=== PATIENT | male | born 1990 | race Caucasian/White ===

== ENCOUNTER → 2016-08-20 | Outpatient (CLI) | payer BC | LOC: OD 16:30 | PROVIDERS: ATTEND Nurse Practitioner Acute Care | DX: R30.0 Dysuria (principal) | CPT/HCPCS: 87086 ==

== ENCOUNTER → 2016-08-28 | Outpatient (CLI) | payer BC | LOC: RAD 19:46 | PROVIDERS: ATTEND Emergency Medicine | DX: S67.22XA Crushing injury of left hand, initial encounter (principal); X58.XXXA Exposure to other specified factors, initial encounter ==

== ENCOUNTER 2016-08-30 00:05 | Emergency (ER) | payer OTHER, BC ==
--- NOTE | 2016-08-30 02:03 | ER Document Report ---
HPI - HPI Patient complains to provider of: left hand pain Pain Level: 5 Context: Patient is 26-year-old male that comes emergency department for chief complaint of pain to his left hand. He states he struck his hand against a supply runway at work about 36 hours ago, he had an x-ray yesterday performed at urgent care which did not show any fractures. He states the area is still somewhat tender and swollen. He states he is taking 2 doses of ibuprofen, has not iced the area. He states he just wants it rechecked. He denies any new swelling, increased pain, or any other symptoms. He denies any daily medications or medical problems. - DERM Skin Color: Normal Past Medical History - General Information source: Patient - Social History Smoking Status: Never Smoker Drug Abuse: None Lives with: Alone Family History: Reviewed & Not Pertinent Patient has suicidal ideation: No Patient has homicidal ideation: No - Medical History Medical History: Negative Renal/ Medical History: Denies: Hx Peritoneal Dialysis Surgical Hx: Negative - Immunizations Immunizations up to date: Yes Hx Diphtheria, Pertussis, Tetanus Vaccination: Yes Vertical Provider Document - CONSTITUTIONAL General Appearance: WD/WN, No Apparent Distress - INFECTION CONTROL TRAVEL OUTSIDE OF THE [place] IN LAST 30 DAYS: No - HEENT HEENT: Atraumatic, Normocephalic - RESPIRATORY Respiratory: Breath Sounds Normal O2 Sat by Pulse Oximetry: 97 - CARDIOVASCULAR Cardiovascular: Regular Rate, Regular Rhythm - GI/ABDOMEN Gastrointestinal: Abdomen Soft, Abdomen Non-Tender - BACK Back: Normal Inspection - MUSCULOSKELETAL/EXTREMETIES Musculoskeletal/Extremeties: Tender - There is mild tenderness over the fourth and fifth metacarpal areas with minimal soft tissue swelling, no ecchymosis, normal range of motion of the fingers, normal distal neurovascular exam, normal wrist exam including normal snuffbox examination, normal upper extremity exam otherwise Course - Re-evaluation Re-evalutation: Examination shows very mild soft tissue swelling, x-ray report reviewed, no indication for repeat x-ray with no reinjury or other antibodies. No signs of compartment syndrome, normal neurovascular exam, unremarkable exam. Chronic patient with work note for a couple of days, instructed him to ice it, take the anti-inflammatory more regularly, and follow-up with primary care. Discussed return precautions. Patient states understanding and agreement. - Vital Signs Vital signs: Temp Pulse Resp BP Pulse Ox 976 F H 82 16 116/70 97 08/30/16 00:19 08/30/16 00:19 08/30/16 00:19 08/30/16 00:19 08/30/16 00:19 Discharge - Discharge Clinical Impression: Injury of left hand Qualifiers: Encounter type: initial encounter Qualified Code(s): S69.92XA - Unspecified injury of left wrist, hand and finger(s), initial encounter Condition: Stable Disposition: HOME, SELF-CARE Additional Instructions: The soft tissue swelling from the hand injury will resolve with time. No fracture is seen on x-ray, the examination does not indicate any other abnormality. Ice the hand 3-4 times a day for 10-15 minutes. Take the ibuprofen 3 times daily. Rest your hand. Follow up with primary care. Return to the ED for any concerning symptoms - worsening swelling, redness, fever, etc. Forms: Return to Work
[2016-08-30 02:22] VITALS: BP 119/65
== END 2016-08-30 02:10 | disposition home or self-care (01) ==
LOC: ER 00:05
DX: S69.92XA Unspecified injury of left wrist, hand and finger(s), initial encounter (principal); W22.09XA Striking against other stationary object, initial encounter; Y99.0 Civilian activity done for income or pay
CPT/HCPCS: 99283